=== PATIENT | male | born 1945 | race African-American/Black ===

== ENCOUNTER 2019-08-10 07:25 | Outpatient (CLI) | payer MEDICARE ==
--- NOTE | 2019-08-10 08:41 | RAD ---
Lumbar spine: 2 views INDICATIONS:Low back pain. Spondylosis of the lumbar region COMPARISON:07/31/2010 FINDINGS: Vertebral bodies maintain normal height. Disc spaces of lumbar spine maintain normal height. Normal alignment is maintained. Mild degenerative osteophytes in the lumbar vertebra. Mild to moderate facet hypertrophy. No soft tissue abnormality. IMPRESSION: [id number] degenerative changes of lumbar spine
--- NOTE | 2019-08-10 09:26 | MRI ---
MRI LUMBAR SPINE WITHOUT CONTRAST: INDICATION: Back pain. Spondylosis of lumbar region. FINDINGS: Lumbar vertebrae maintain normal height and alignment. Disk spaces are maintained. Vertebral body s ignal is normal. At L1-2, there is no significant disk bulge or protrusion. No central canal or foraminal stenosis. At L2-3, minimal disk bulge flattens the anterior thecal sac. Mild facet arthrosis. No significant central canal or foraminal stenosis. At L3-4, minimal disk bulge. Mild facet arthrosis. No significant central canal or foraminal stenos is. At L4-5, mild disk bulge flattens the anterior thecal sac. Mild facet arthrosis and hypertrophy. No significant central canal or foraminal stenosis. At L5-S1, mild disk bulge. Mild facet arthrosis. No central canal or foraminal stenosis. IMPRESSION: Mild disk bulges at several levels as described above. No significant central canal or foraminal osorio nosis identified. POS: [facility]
== END 2019-08-10 07:26 | disposition home or self-care (01) ==
LOC: BICMRI 07:25
PROVIDERS: ATTEND Family Medicine
DX: M47.816 Spondylosis without myelopathy or radiculopathy, lumbar region (principal); M51.86 Other intervertebral disc disorders, lumbar region
CPT/HCPCS: 72100; 72148

== ENCOUNTER 2025-08-23 12:36 | Outpatient (CLI) | payer MEDICARE | END 2025-08-23 12:37 | disposition home or self-care (01) | LOC: BICMRI 12:36 | PROVIDERS: ATTEND Family Medicine | DX: M54.16 Radiculopathy, lumbar region (principal) | CPT/HCPCS: 72100; 72148 ==